=== PATIENT | female | born 1960 | race Caucasian/White ===

== ENCOUNTER 2016-12-06 06:47 | Day surgery (SDC) | payer BC ==
--- NOTE | ~2016-12-06 | EGD ---
EGD REPORT [facility] [address] [address] NAME: RACH MORENO : 56 STATUS : REG [facility] [place] PAT#: [id number] AGE: 56 ADM/REG DATE : 12/06/16 MR#: [id number] REPORT SERV DATE: 12/06/16 DICTATED BY: KAMERON DE JESUS DATE: 12/06/16 REPORT STATUS : Draft TRANSCRIBED [facility]: [facility] DATE: 12/06/16 Endoscopy Center Patient Name: Rach Moreno Date of : 1960 Attending MD: GLORIA DE JESUS MD Procedure Date No Time: 12/06/2016 Procedure: Colonoscopy Indications: Screening for colorectal malignant neoplasm, Last colonoscopy: 2006 Referring MD: QUEENIE RETANA Medicines: See the Anesthesia note for documentation of the administered medications Complications: No immediate complications. Estimated blood loss: None. Procedure: Pre-Anesthesia Assessment: - ASA Grade Assessment: II - A patient with mild systemic disease. - Prior to the procedure, a History and Physical was performed, and patient medications and allergies were reviewed. The patient's tolerance of previous anesthesia was also reviewed. The risks and benefits of the procedure and the sedation options and risks were discussed with the patient. All questions were answered, and informed consent was obtained. Prior Anticoagulants: The patient has taken no previous anticoagulant or antiplatelet agents. After reviewing the risks and benefits, the patient was deemed in satisfactory condition to undergo the procedure. After I obtained informed consent, the scope was passed under direct vision. Throughout the procedure, the patient's blood pressure, pulse, and oxygen saturations were monitored continuously. The PCF [id number] was introduced through the anus and advanced to the cecum, identified by appendiceal orifice and ileocecal valve. The ileocecal valve, appendiceal orifice and rectum were photographed. The entire colon was examined. The colonoscopy was performed without difficulty. The patient tolerated the procedure well. The quality of the bowel preparation was adequate. Findings: The perianal and digital rectal examinations were normal. A sessile polyp was found in the cecum. The polyp was 3 mm in size. The polyp was removed with a cold biopsy forceps. Resection and retrieval were complete. A few medium-mouthed diverticula were found in the sigmoid colon. EGD REPORT [address] [address] NAME: RACH MORENO : [birth year] STATUS : REG [facility]#: [id number] AGE: 56 ADM/REG DATE : 12/06/16 MR#: [id number] REPORT SERV DATE: 12/06/16 DICTATED BY: KAMERON DE JESUS DATE: 12/06/16 REPORT STATUS : Draft TRANSCRIBED BY: [facility] DATE: 12/06/16 Non-bleeding internal hemorrhoids were found during retroflexion and were Grade I (internal hemorrhoids that do not prolapse). No other significant abnormalities were identified in a careful examination of the remainder of the colon. Impression: - One 3 mm polyp in the cecum. Resected and retrieved. - Diverticulosis in the sigmoid colon. - Non-bleeding internal hemorrhoids. Recommendation: - Continue present medications. - Discharge patient to home. - Continue present medications. - High fiber diet indefinitely. - Await pathology results. - Repeat colonoscopy in 5-10 years for surveillance based on pathology results. Procedure Code(s): --- Professional --- 37257, Colonoscopy, flexible, proximal to splenic flexure; with biopsy, single or multiple Diagnosis Code(s): --- Professional --- D12.0, Benign neoplasm of cecum K64.0, First degree hemorrhoids K57.30, Diverticulosis of large intestine without perforation or abscess without bleeding Z12.11, Encounter for screening for malignant neoplasm of colon CPT copyright 2013 [employer]. All rights reserved. The codes documented in this report are preliminary and upon account engineer review may be revised to meet current compliance requirements. GLORIA DE JESUS MD 12/06/2016 8:38 AM This report has been signed electronically. Number of Addenda: 0 Note Initiated On: 12/06/2016 7:29 AM Scope Withdrawal Time 0 hours 7 minutes 18 seconds [address] [id number]
--- NOTE | ~2016-12-06 | EGD ---
EGD REPORT [facility] [address] [address] NAME: RACH MORENO : [birth year] STATUS : REG [facility] [place] PAT#: [id number] AGE: 56 ADM/REG DATE : 12/06/16 MR#: [id number] REPORT SERV DATE: 12/06/16 DICTATED BY: KAMERON DE JESUS DATE: 12/06/16 REPORT STATUS : Draft [facility]: [facility] DATE: 12/06/16 Endoscopy Center Patient Name: Rach Moreno Date of : 1960 Attending MD: GLORIA DE JESUS MD Procedure Date No Time: 12/06/2016 Procedure: Upper GI endoscopy Indications: Dysphagia Referring MD: QUEENIE RETANA Medicines: See the Anesthesia note for documentation of the administered medications Complications: No immediate complications. Estimated blood loss: Minimal. Procedure: Pre-Anesthesia Assessment: - ASA Grade Assessment: II - A patient with mild systemic disease. - Prior to the procedure, a History and Physical was performed, and patient medications and allergies were reviewed. The patient's tolerance of previous anesthesia was also reviewed. The risks and benefits of the procedure and the sedation options and risks were discussed with the patient. All questions were answered, and informed consent was obtained. Prior Anticoagulants: The patient has taken no previous anticoagulant or antiplatelet agents. After reviewing the risks and benefits, the patient was deemed in satisfactory condition to undergo the procedure. After obtaining informed consent, the endoscope was passed under direct vision. Throughout the procedure, the patient's blood pressure, pulse, and oxygen saturations were monitored continuously. The GIF H190 [id number] was introduced through the mouth, and advanced to the second part of duodenum. The upper GI endoscopy was accomplished without difficulty. The patient tolerated the procedure well. Findings: Multiple diffuse erosions without bleeding were found in the second part of the duodenum. Biopsies were taken with a cold forceps for histology. The exam of the duodenum was otherwise normal. The gastric antrum was normal. Biopsies were taken with a cold forceps for histology. The cardia and gastric fundus were normal on retroflexion. A benign-appearing, intrinsic moderate stenosis was found at the cricopharyngeus and was traversed. EGD REPORT [address] [address] NAME: RACH MORENO : [birth year] STATUS : REG [facility] [place] PAT#: [id number] AGE: 56 ADM/REG DATE : 12/06/16 MR#: [id number] REPORT SERV DATE: 12/06/16 DICTATED BY: KAMERON DE JESUS DATE: 12/06/16 REPORT STATUS : Draft TRANSCRIBED BY: [facility] DATE: 12/06/16 A benign-appearing, intrinsic moderate stenosis was found at the gastroesophageal junction and was traversed. A guidewire was placed and the scope was withdrawn. Dilation was performed with a Savary dilator with mild resistance at 36 Fr, mild resistance at 39 Fr and moderate resistance at 42 Fr. Estimated blood loss was minimal. Impression: - Duodenal erosions without bleeding. Biopsied. - Normal antrum. Biopsied. - Benign-appearing esophageal stricture. - Benign-appearing esophageal stricture. Dilated. Recommendation: - Patient has a contact number available for emergencies. The signs and symptoms of potential delayed complications were discussed with the patient. Return to normal activities tomorrow. Written discharge instructions were provided to the patient. - Regular diet. - Discharge patient to home. - Continue present medications. - Await pathology results. Procedure Code(s): --- Professional --- 55612, Esophagogastroduodenoscopy, flexible, transoral; with insertion of guide wire followed by passage of dilator(s) through esophagus over guide wire 25551, Esophagogastroduodenoscopy, flexible, transoral; with biopsy, single or multiple Diagnosis Code(s): --- Professional --- K26.9, Duodenal ulcer, unspecified as acute or chronic, without hemorrhage or perforation K22.2, Esophageal obstruction R13.10, Dysphagia, unspecified CPT copyright 2013 [employer] [place] [employer]. All rights reserved. The codes documented in this report are preliminary and upon vp publisher development review may be revised to meet current compliance requirements. GLORIA DE JESUS MD 12/06/2016 8:20 AM This report has been signed electronically. Number of Addenda: 0 Note Initiated On: 12/06/2016 7:33 AM EGD REPORT [facility] [address] [address] NAME: RACH MORENO : [birth year] STATUS : REG [facility] [place] PAT#: [id number] AGE: 56 ADM/REG DATE : 12/06/16 MR#: [id number] REPORT SERV DATE: 12/06/16 DICTATED BY: KAMERON DE JESUS DATE: 12/06/16 REPORT STATUS : Draft TRANSCRIBED BY: [facility] DATE: 12/06/16 Scope Withdrawal Time 0 hours 0 minutes 0 seconds [address] [id number]
[~2016-12-06 06:47] MED LIST: CALCIUM CHEW PO; CENTRUM PO; MOBIC15 MG PO; OS CAL; OS500+D PO; PRILOSEC40 MG PO; ZANTAC150 MG PO; [UNRECOGNIZED DRUG - OTHER]
== END 2016-12-06 23:59 | disposition home or self-care (01) ==
LOC: DMU 06:47
PROVIDERS: Internal Medicine Gastroenterology
PROC: 0DB98ZX Excision of Duodenum, Via Natural or Artificial Opening Endoscopic, Diagnostic (ICD-10-PCS; principal; 2016-12-06 08:30)
PROC: 0D7 Gastrointestinal System, Dilation (ICD-10-PCS; 2016-12-06 08:30)
DX: Z12.11 Encounter for screening for malignant neoplasm of colon (principal); K26.9 Duodenal ulcer, unspecified as acute or chronic, without hemorrhage or perforation; K22.2 Esophageal obstruction; R13.10 Dysphagia, unspecified; H91.90 Unspecified hearing loss, unspecified ear; M72.2 Plantar fascial fibromatosis; K21.9 Gastro-esophageal reflux disease without esophagitis; K64.9 Unspecified hemorrhoids; R32 Unspecified urinary incontinence; K64.0 First degree hemorrhoids; Z88.0 Allergy status to penicillin; Z79.899 Other long term (current) drug therapy; Z90.89 Acquired absence of other organs; Z98.890 Other specified postprocedural states; Z90.49 Acquired absence of other specified parts of digestive tract
CPT/HCPCS: 88305; J2405